=== PATIENT | male | born 1955 | race Caucasian/White ===

== ENCOUNTER → 2023-12-16 16:55 | Outpatient (CLI) | payer MEDICARE, SELFPAY ==
[2023-12-17 15:22] LABS: Influenza A - CEPHEID Flu A NEGATIVE (NEGATIVE); Influenza B - CEPHEID Flu B NEGATIVE (NEGATIVE); Respiratory Syncytial Virus Negative (Negative)
[2023-12-17 15:24] LABS: COVID-19 CEPHEID 4-PLEX PCR Negative (Negative)
== END ==
PROVIDERS: Visit Provider Student in an Organized Health Care Education/Training Program
DX: R05.1 Acute cough (principal)
CPT/HCPCS: 0241U

== ENCOUNTER 2023-12-16 17:44 | Emergency (ER) | payer MEDICARE, SELFPAY ==
[2023-12-16 17:49] VITALS: BP 157/74; PULSE 67; RESP 22; TEMP 36.9; O2SAT 98; BMI 27.2
--- NOTE | 2023-12-16 17:59 | DI.RAD.S_ITS ---
PROCEDURE: XR CHEST 1V INDICATIONS: chest pain TECHNIQUE: One view of the chest was acquired. COMPARISON: None. FINDINGS: Surgical changes and devices: None. Lungs and pleura: No pleural effusions or pneumothorax. Left greater than right reticulonodular opacities. Mediastinum: Mediastinal contours appear normal. Heart size is normal. Bones and chest wall: No suspicious bony lesions. Overlying soft tissues appear unremarkable. IMPRESSION: Bilateral, left greater than right reticulonodular opacities may represent fibrotic changes. No focal airspace consolidation. Approved by: Janene Rolle M.D.,Ph.D. on 12/16/2023 at 20:04
[2023-12-16 19:11] LABS: Add Manual Diff / Slide Review NO; Basophils Absolute Auto 0 /uL (0-100); Basophils Percent Auto 0.5 % (0-2); Eosinophils Absolute Auto 100 /uL (0-450); Eosinophils Percent Auto 1.6 % (2-4); Hematocrit 40.4 % (41-53); Hemoglobin 14.1 g/dL (13.5-17.5); Lymphocytes Absolute Auto 600 /uL (1100-4500); Lymphocytes Percent Auto 6.7 % (25-40); Mean Corpuscular HGB Conc 34.8 % (30-36); Mean Corpuscular Hemoglobin 33.1 PG (26-34); Monocytes Absolute Auto 900 /uL (0-900); Monocytes Percent Auto 10.2 % (3-14); Neutrophils Absolute Auto 7000 /uL (1500-7000); Platelet Count 168 X10^3/uL (150-400); Red Blood Cell Count 4.26 X10^6/uL (4.5-5.9); Red Cell Distribution Width 13.6 % (11.6-14.8); White Blood Cell Count 8.6 X10^3/uL (4.5-11.0)
[2023-12-16 19:16] LABS: INR 1.2 (0.9-1.3); Prothrombin Time 13.6 SECONDS (9.4-12.5)
[2023-12-16 19:19] LABS: PTT Partial Thromboplastin Tim 35 SECONDS (25.1-36.5)
[2023-12-16 19:21] LABS: Alanine Aminotransferase 93 IU/L (<50); Albumin 4.6 g/dL (3.5-5.0); Albumin Globulin Ratio 1.6 (1.0-2.8); Alkaline Phosphatase 75 U/L (38-126); Aspartate Aminotransferase 66 IU/L (17-59); BUN Creatinine Ratio 13.2 (6-22); Bilirubin Total 1.9 mg/dL (0.2-1.3); Blood Urea Nitrogen 12 mg/dL (9-20); Calcium 9.1 mg/dL (8.4-10.2); Carbon Dioxide 25 mmol/L (22-32); Chloride 104 mmol/L (98-107); Creatine Kinase 112 U/L (55-170); Estimated Glomerular Filt Rate > 60 mL/min (>60); Globulin 2.9 g/dL (1.7-4.1); Glucose 84 mg/dL (80-110); HEMOLYSIS 20 (0-50); Lipase 187 U/L (23-300); Magnesium 2.2 mg/dL (1.6-2.3); Sodium 135 mmol/L (137-145); Total Protein 7.5 g/dL (6.3-8.2)
[2023-12-16 19:32] LABS: Troponin I < 0.012 ng/mL (0.01-0.034)
[2023-12-16 20:47] LABS: Adenovirus Not Detected (Not Detect); B. parapertussis Not Detected (Not Detecte); Bordetella pertussis Not Detected (Not Detect); Chlamydophila pneumoniae Not Detected (Not Detect); Coronavirus 229E Not Detected (Not Detect); Coronavirus HKU1 Not Detected (Not Detect); Coronavirus NL 63 Not Detected (Not Detect); Coronavirus OC43 Not Detected (Not Detect); Human Metapneumovirus Not Detected (Not Detect); Human Rhinovirus/Enterovirus Not Detected (Not Detect); Influenza A Not Detected (Not Detect); Influenza B Not Detected (Not Detect); Mycoplasma pneumoniae Not Detected (Not Detect); Parainfluenza Virus 1 Not Detected (Not Detect); Parainfluenza Virus 2 Not Detected (Not Detect); Parainfluenza Virus 3 Not Detected (Not Detect); Parainfluenza Virus 4 Not Detected (Not Detect); Respiratory Syncytial Virus Not Detected (Not Detect); SARS- CoV-2 Not Detected (Not Detecte)
[2023-12-16] MEDS: ASPIRIN 81 MG CHEW TAB 324 MG PO (20:59)
[2023-12-16 21:30] VITALS: BP 158/83; PULSE 101; RESP 24; O2SAT 97
[2023-12-16 22:00] VITALS: BP 146/84; PULSE 104; RESP 36; O2SAT 99
--- NOTE | 2023-12-16 22:06 | ED.CHESTPAIN ---
HPI - Chest Pain General Chief Complaint: Chest Pain Stated Complaint: fatigue, sweats, SOB Time Seen by Provider: 12/16/23 21:18 Source: patient Mode of arrival: Ambulatory Limitations: no limitations History of Present Illness HPI narrative: Patient is a 68-year-old male. Recently arrived to the area after spinning the past couple weeks moving a boat from [place] to the local area. Over the past couple days he has had subjective fevers. Having fatigue and a cough and shortness of breath. No sore throat. No sinus congestion. He states he is now having some chest congestion. Is occasionally a productive cough but not all the time. No chest pain. No abdominal pain. No skin rashes. Has been taking Claritin. Related Data Home Medications Medication Instructions Recorded Confirmed apixaban [Eliquis] PO 12/16/23 12/16/23 ezetimibe [Zetia] PO 12/16/23 12/16/23 flecainide PO 12/16/23 12/16/23 metoprolol tartrate PO 12/16/23 12/16/23 pravastatin PO 12/16/23 12/16/23 Previous Rx's Medication Instructions Recorded azithromycin 250 mg tablet See Rx Instructions PO .COMPLEX #6 12/16/23 tabs benzonatate 100 mg capsule 100 mg PO TID PRN cough #14 caps 12/16/23 Allergies Allergy/AdvReac Type Severity Reaction Status Date / Time Penicillins Allergy Unknown Verified 12/16/23 16:58 Review of Systems Review of Systems ROS Unobtainable: All systems reviewed & are unremarkable except as noted in HPI and below Patient History Social History Smoking Status: Never smoker Smoking Status: Never smoker alcohol intake frequency: a few times a week Alcohol type: beer, wine and hard liquor Substance Use Type: does not use Exam Initial Vital Signs Initial Vital Signs: Vital Signs Temperature 98.5 F 12/16/23 17:49 Pulse Rate 67 12/16/23 17:49 Respiratory Rate 22 12/16/23 17:49 Blood Pressure 157/74 H 12/16/23 17:49 Pulse Oximetry 98 12/16/23 17:49 Oxygen Delivery Method Room Air 12/16/23 17:49 Const General: cooperative, comfortable and No ill appearing HENHI Head: normal to inspection and normocephalic Resp Effort & Inspection: normal respiratory effort Auscultation: clear to auscultation bilaterally Cardio Rate: regular rate Rhythm: regular rhythm GI Inspection: normal to inspection and non-distended Skin General: no rashes or lesions noted Neuro General: patient alert, patient awake and moves all extremities Extrem General: No edema Course Orders Ordered: ED Orders 12/16/23 19:54 Respiratory Panel (Film Array) Stat Discontinued Medications Aspirin (Aspirin 81 Mg Chew Tab) 324 mg PO NOW ONE Stop: 12/16/23 18:00 Last Admin: 12/16/23 20:59 Dose: 324 mg Documented By: DAXA Vital Signs Vital signs: Vital Signs - 8 hr 12/16/23 21:30 12/16/23 21:30 12/16/23 22:00 Temperature Pulse Rate 101 H 104 H Respiratory Rate 24 36 H Blood Pressure 158/83 H Pulse Oximetry 97 99 Oxygen Delivery Method Room Air 12/16/23 22:00 12/16/23 22:16 Temperature 97.9 F Pulse Rate Respiratory Rate Blood Pressure 146/84 H Pulse Oximetry Oxygen Delivery Method MDM - Chest Pain Lab Data Attestation: I reviewed the patient's lab results. 12/16/23 19:01 12/16/23 19:01 Labs: Lab Results 12/16/23 12/16/23 Range/Units 19:01 19:54 WBC 8.6 (4.5-11.0) X10^3/uL RBC 4.26 L (4.5-5.9) X10^6/uL Hgb 14.1 (13.5-17.5) g/dL Hct 40.4 L (41-53) % MCV 95.0 (80-100) fL MCH 33.1 (26-34) PG MCHC 34.8 (30-36) % RDW 13.6 (11.6-14.8) % Plt Count 168 (150-400) X10^3/uL Neut % (Auto) 81.0 H (50-75) % Lymph % (Auto) 6.7 L (25-40) % [place] % (Auto) 10.2 (3-14) % Eos % (Auto) 1.6 L (2-4) % Baso % (Auto) 0.5 (0-2) % Neut # (Auto) 7000 (2991-9212) /uL Lymph # (Auto) 600 L (0193-4561) /uL [place] # (Auto) 900 (0-900) /uL Eos # (Auto) 100 (0-450) /uL Baso # (Auto) 0 (0-100) /uL PT 13.6 H (9.4-12.5) SECONDS INR 1.2 (0.9-1.3) APTT 35 (25.1-36.5) SECONDS Sodium 135 L (137-145) mmol/L Potassium 4.0 (3.4-5.1) mmol/L Chloride 104 (98-107) mmol/L Carbon Dioxide 25 (22-32) mmol/L BUN 12 (9-20) mg/dL Creatinine 0.91 (0.66-1.25) mg/dL Estimated GFR > 60 (>60) mL/min BUN/Creatinine Ratio 13.2 (6-22) Glucose 84 (80-110) mg/dL Calcium 9.1 (8.4-10.2) mg/dL Magnesium 2.2 (1.6-2.3) mg/dL Total Bilirubin 1.9 H (0.2-1.3) mg/dL AST 66 H (17-59) IU/L ALT 93 H (<50) IU/L Alkaline Phosphatase 75 (38-126) U/L Total Creatine Kinase 112 (55-170) U/L Troponin I < 0.012 (0.01-0.034) ng/mL Total Protein 7.5 (6.3-8.2) g/dL Albumin 4.6 (3.5-5.0) g/dL Globulin 2.9 (1.7-4.1) g/dL Albumin/Globulin Ratio 1.6 (1.0-2.8) Lipase 187 (23-300) U/L Chlamy pneumoniae PCR Not detected (Not Detect) Adenovirus (PCR) Not detected (Not Detect) B.parapertussis DNA PCR Not detected (Not Detecte) Coronavirus OC43 (PCR) Not detected (Not Detect) Coronavirus HKU1 (PCR) Not detected (Not Detect) Coronavirus 229E (PCR) Not detected (Not Detect) SARS-CoV-2 (PCR) Not detected (Not Detecte) Coronavirus NL63 (PCR) Not detected (Not Detect) Human Metapneumovir PCR Not detected (Not Detect) Influenza Type A (PCR) Not detected (Not Detect) Influenza Type B (PCR) Not detected (Not Detect) M. pneumoniae (PCR) Not detected (Not Detect) Parainfluenza 1 (PCR) Not detected (Not Detect) Parainfluenza 2 (PCR) Not detected (Not Detect) Parainfluenza 3 (PCR) Not detected (Not Detect) Parainfluenza 4 (PCR) Not detected (Not Detect) RSV (PCR) Not detected (Not Detect) Entero/Rhino (PCR) Not detected (Not Detect) Imaging Data Chest x-ray: Radiologist's Impression: PROCEDURE: XR CHEST 1V INDICATIONS: chest pain TECHNIQUE: One view of the chest was acquired. COMPARISON: None. FINDINGS: Surgical changes and devices: None. Lungs and pleura: No pleural effusions or pneumothorax. Left greater than right reticulonodular opacities. Mediastinum: Mediastinal contours appear normal. Heart size is normal. Bones and chest wall: No suspicious bony lesions. Overlying soft tissues appear unremarkable. IMPRESSION: Bilateral, left greater than right reticulonodular opacities may represent fibrotic changes. No focal airspace consolidation. ECG Data Attestation: I personally reviewed and interpreted this ECG as follows: Interpretation: Sinus rhythm Ventricular rate is 69 first-degree AV block GA interval 240 milliseconds Normal axis No ST T wave changes MDM Narrative Medical decision making narrative: Patient has a history and physical exam that is most consistent with bronchitis. We did discuss the possibility that this is most likely a viral illness although he started to have symptoms and then the symptoms improved and now they have come back again. He was having subjective fevers and occasionally having a productive cough. Plan will be is for now to treat his symptoms conservatively with [id number] medications and also prescription for Tessalon Perles. I will prescribe antibiotics and a written prescription he will hold on filling these to see if symptoms improve over the next 24-48 hours. If he starts to get worsening symptoms or more of a productive cough or develops fevers he will start taking the antibiotics as directed Discharge Plan Departure Patient Disposition: Home Clinical Impression: Bronchitis Instructions: Acute Bronchitis Activity Restrictions/Additional Instructions: Continue to take all of your medications as directed. Take the Tessalon as needed for the cough. Hold on the prescription for the antibiotics for the next couple days. If you start to develop worsening symptoms or continued sweating or fevers then fill the prescription for antibiotics and take it as directed. Return to the emergency department for new symptoms. Prescriptions: New benzonatate 100 mg capsule 100 mg PO TID PRN (Reason: cough) Qty: 14 0RF azithromycin 250 mg tablet See Rx Instructions .ROUTE .COMPLEX Qty: 6 0RF Rx Instructions: For 250 mg dose pack: take 500 mg today (day 1), then 250 mg for 4 days (days 2-5) No Action flecainide PO metoprolol tartrate PO pravastatin PO ezetimibe [Zetia] PO apixaban [Eliquis] PO Referrals: Miscellaneous,Doctor, MD [Primary Care Provider] - Stand Alone Forms: Patient Portal/API
[2023-12-16 22:16] VITALS: TEMP 36.6
== END 2023-12-16 22:17 | disposition home or self-care (01) ==
PROVIDERS: Emergency Medicine; Emergency Provider Emergency Medicine
DX: J40 Bronchitis, not specified as acute or chronic (principal); R05.1 Acute cough
CPT/HCPCS: 0241U; 36415; 71045; 80053; 82550; 83690; 83735; 84484; 85025; 85610; 85730; 87633; 93005; 99284